=== PATIENT | male | born 1950 | race Caucasian/White ===

== ENCOUNTER 2023-05-18 16:58 | Emergency (ER) | payer OTHER ==
[~2023-05-18] VITALS: Ht 180.3 cm; Wt 102.1 kg
[~2023-05-18 16:58] MED LIST: ASPI325; ATOR10; ATOR40TA; CARV6.25 PO; CEPH500 PO; CLOP75; EZET10 PO; LISI5 PO; METO50; OMEP40CA12 PO; OXYACE5T PO
[2023-05-18 17:03] VITALS: BP 128/79
[2023-05-18] MEDS ORDERED: Norco 5-325 Ta1 EACH PO (18:22)
[2023-05-18] MEDS ORDERED: AMOCLA875 PO (18:22)
== END 2023-05-18 18:28 | disposition home or self-care (01) ==
LOC: ER 16:58
DX: S20.211A Contusion of right front wall of thorax, initial encounter (principal); J44.9 Chronic obstructive pulmonary disease, unspecified; W01.10XA Fall on same level from slipping, tripping and stumbling with subsequent striking against unspecified object, initial encounter; Z79.899 Other long term (current) drug therapy; F17.290 Nicotine dependence, other tobacco product, uncomplicated
CPT/HCPCS: 71046; 71100; 96372; 99283-25; A9270; J1885